=== PATIENT | female | born 1945 | race American Indian/Alaskan Native ===

== ENCOUNTER 2016-10-22 10:27 | Outpatient (CLI) | payer MEDICARE ==
--- NOTE | 2016-10-22 11:30 | Mammography Report ---
Bilateral diagnostic mammogram with spot compression magnification of density right lower breast: Compared to 07/07/15. CAD study utilized. History: Right breast pain. Findings: Predominance of adipose tissue bilaterally. No microcalcification. Benign axillary nodes. New density seen in the right lower breast effaces on spot compression views and 90degree lateral view. Impression: Benign findings. Annual followup recommended. BI-RADS CATEGORY: 2 = Benign ACR BI-RADS MAMMOGRAPHIC CODES: 0 = Needs additional imaging evaluation; 1 = Negative; 2 = Benign; 3 = Probably benign; 4 = Suspicious; 5 = Malignant; 6 = Known biopsy-proven malignancy COMMENT: 1. Dense breast tissue, i.e., adenosis, fibrocystic changes, etc., may obscure an underlying neoplasm. 2. Approximately 10% of cancers are not detected with mammography. 3. A negative mammography report should not delay biopsy if a clinically suspicious mass is present. COMMENT: Patient follow-up letters are generated in [employer].
== END 2016-10-22 10:28 | disposition home or self-care (01) ==
LOC: MAMMO 10:27
PROVIDERS: ATTEND Internal Medicine
DX: N64.4 Mastodynia (principal)
CPT/HCPCS: 77066; G0204

== ENCOUNTER 2016-10-26 11:04 | Outpatient (CLI) | payer MEDICARE ==
--- NOTE | 2016-10-26 13:54 | Ultrasound Report ---
RIGHT UPPER QUADRANT ABDOMINAL ULTRASOUND: 10/26/16 11:04:00 CLINICAL: Right upper quadrant abdominal pain. FINDINGS: High-resolution ultrasound demonstrated a normal size liver with moderate diffuse increased echogenicity. No liver mass. Normal hepatic vasculature and inferior vena cava. Normally distended gallbladder with no stones. The gall bladder wall measures 2.0 mm in thickness. Normal intrahepatic and extra hepatic bile ducts. The common bile duct measures 4.0 mm diameter. Normal pancreatic head and body. The pancreatic tail is obscured by bowel gas. Normal upper abdominal aorta measuring 2.6 cm. The right kidney is normal and measures 11.0 x 3.5 x 4.3cm. No ascites or mass. IMPRESSION: 1. Hepatic steatosis. 2. Normal biliary tract with no cholelithiasis. 3. No signs of pancreatitis.
== END 2016-10-26 11:05 | disposition home or self-care (01) ==
LOC: SPVWC 11:04
PROVIDERS: ATTEND Internal Medicine
DX: K76.0 Fatty (change of) liver, not elsewhere classified (principal); K82.8 Other specified diseases of gallbladder
CPT/HCPCS: 76705

== ENCOUNTER 2019-06-22 09:29 | Outpatient (CLI) | payer MEDICARE ==
--- NOTE | 2019-06-22 10:50 | Ultrasound Report ---
ABDOMINAL ULTRASOUND LIMITED (RIGHT UPPER QUADRANT) HISTORY: Abdominal pain COMPARISON: None. TECHNIQUE: Multiple real-time ultrasonographic grayscale images were obtained of the right upper abdo men. FINDINGS: Pancreas: No significant abnormality. Liver: Normal. Gallbladder: No stones, wall thickening or pericholecystic fluid. Common bile duct: 4.5 mm. Right kidney: Normal. No hydronephrosis. No renal mass, cyst or calculus. Kidney measures 10.4 cm. Additional findings: None. IMPRESSION: 1. Normal study. 2. No cholelithiasis and no signs of acute cholecystitis. Signer Name: Manny Sheriff MD Signed: 06/22/2019 10:46 AM Workstation Name: [id number]
== END 2019-06-22 09:30 | disposition home or self-care (01) ==
LOC: SPVWC 09:29
PROVIDERS: ATTEND Internal Medicine
DX: R10.9 Unspecified abdominal pain (principal); R11.0 Nausea
CPT/HCPCS: 76705

== ENCOUNTER 2020-09-22 10:36 | Outpatient (CLI) | payer MEDICARE ==
--- NOTE | 2020-09-22 13:05 | Mammography Report ---
DIGITAL SCREENING MAMMOGRAM WITH CAD, 09/22/2020 CLINICAL INFORMATION / INDICATION: Routine screening mammography. SCREENING MAMMOGRAM TECHNIQUE: Digital bilateral 2D mammography was obtained in the craniocaudal and mediolateral obliqu e projections. This examination was interpreted with the benefit of Computer-Aided Detection analysis . COMPARISON: 10/22/2016 and 07/07/2015 FINDINGS: Breast Density: There are scattered areas of fibroglandular density. No dominant mass, suspicious calcifications, or architectural distortion in either breast. IMPRESSION: No mammographic evidence of malignancy. Follow up recommendation: Routine yearly BI-RADS Category 1: Negative. A "normal" or negative report should not discourage follow up or biopsy of a clinically significant f inding. A written summary of these findings will be mailed to the patient. The patient will be entered into a mammography reporting system which will generate a reminder letter for the patient's next appointmen t at the appropriate interval. [employer] recommends yearly mammograms starting at age 40 and continuing as l deyanira as a woman is in good health. Breast MRI is recommended for women with an approximate 20-25% or greater lifetime risk of breast cancer, including women with a strong family history of breast or ova kristie cancer or who have been treated for Hodgkin's disease. Signer Name: Aftab Oswald MD Signed: 09/22/2020 1:01 PM Workstation Name: [id number]
== END 2020-09-22 10:37 | disposition home or self-care (01) ==
LOC: MAMMO 10:36
PROVIDERS: ATTEND Internal Medicine
DX: Z12.31 Encounter for screening mammogram for malignant neoplasm of breast (principal)
CPT/HCPCS: 77067